=== PATIENT | female | born 1955 | race Caucasian/White ===

== ENCOUNTER → 2021-02-22 | Outpatient (CLI) | payer BC | END | disposition home or self-care (01) | LOC: RAH 10:14 | PROVIDERS: ATTEND Physical Medicine & Rehabilitation | DX: M47.26 Other spondylosis with radiculopathy, lumbar region (principal); M75.41 Impingement syndrome of right shoulder; M25.511 Pain in right shoulder | CPT/HCPCS: 72110 ==

== ENCOUNTER → 2021-03-30 | Outpatient (CLI) | payer BC | END | disposition home or self-care (01) | LOC: RAH 09:36 | PROVIDERS: ATTEND Physical Medicine & Rehabilitation | DX: M75.41 Impingement syndrome of right shoulder (principal); M25.511 Pain in right shoulder; Z91.040 Latex allergy status | CPT/HCPCS: 73030 ==

== ENCOUNTER → 2021-05-08 | Outpatient (CLI) | payer BC | END | disposition home or self-care (01) | LOC: RAH 09:05 | PROVIDERS: ATTEND Physical Medicine & Rehabilitation | DX: M75.101 Unspecified rotator cuff tear or rupture of right shoulder, not specified as traumatic (principal); M19.011 Primary osteoarthritis, right shoulder; M25.811 Other specified joint disorders, right shoulder; Z91.040 Latex allergy status | CPT/HCPCS: 73221 ==